=== PATIENT | male | born 1975 | race Caucasian/White ===

== ENCOUNTER → 2018-01-08 | Outpatient (CLI) | payer OTHER | LOC: M LRY 10:33 | DX: R09.89 Other specified symptoms and signs involving the circulatory and respiratory systems (principal) | CPT/HCPCS: 71046 ==

== ENCOUNTER 2019-02-17 21:05 | Emergency (ER) | payer OTHER ==
[~2019-02-17] VITALS: Ht 172.7 cm; Wt 72.7 kg
[2019-02-17 21:44] LABS: HEMATOCRIT 47.2 % (42.0-52.0); HEMOGLOBIN 16.4 g/dl (13.5-17.5); MEAN CORPUSCULAR HEMOGLOBIN 34.2 pg (27.0-33.0); MEAN CORPUSCULAR HGB CONC 34.7 g/dl (32.0-36.5); MEAN CORPUSCULAR VOLUME 98.3 fl (80.0-96.0); PLATELET COUNT, AUTOMATED 268 10^3/uL (150-450); WHITE BLOOD COUNT 11.3 10^3/uL (4.0-10.0)
[2019-02-17 22:09] LABS: ATYPICAL LYMPH 7 % (0-5); BASOPHILS 1 % (0-4); EOSINOPHILS 4 % (0-5); LYMPHOCYTES 26 % (16-52); MONOCYTES 7 % (0-8); NEUTROPHILS 55 % (35-75)
[2019-02-17 22:10] LABS: PLATELET ESTIMATE NORMAL (NORMAL)
[2019-02-17 22:13] LABS: BLOOD UREA NITROGEN 11 MG/DL (7-18); CALCIUM LEVEL 8.9 MG/DL (8.5-10.1); CARBON DIOXIDE LEVEL 26 MEQ/L (21-32); CHLORIDE LEVEL 107 MEQ/L (98-107); CK-MB VALUE MASS 2.9 NG/ML (<3.6); CPK CREATINE PHOSPHOKINASE 150 U/L (39-308); CREATININE FOR GFR 0.73 MG/DL (0.70-1.30); GLOMERULAR FILTRATION RATE > 60.0 (>60); GLUCOSE, FASTING 114 MG/DL (70-100); MB/CK RELATIVE INDEX 1.93 (< OR =4); POTASSIUM SERUM 3.8 MEQ/L (3.5-5.1); SODIUM LEVEL 140 MEQ/L (136-145); TROPONIN I < 0.02 NG/ML (< 0.10)
[2019-02-17] MEDS ORDERED: KETOROLAC 30 MG/ML VIAL (J1885) IV ONE (22:30)
[2019-02-17 22:45] VITALS: BP 126/72
[2019-02-17] MEDS ORDERED: IBUP-1022 PO (22:49)
--- NOTE | 2019-02-18 01:49 | REP ---
Clinical: Acute chest pain . Comparison: 01/08/2018 . Findings: The mediastinum and cardiac silhouette are stable and within normal limits for portable technique. The lung grant are clear without acute consolidation, effusion, or pneumothorax. Skeletal structures are intact. Impression: No acute cardiopulmonary process appreciated. Electronically Signed by Devaughn Lim MD 02/18/2019 01:41 A
--- NOTE | 2019-02-18 05:45 | ECGEPIP ---
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
== END 2019-02-17 22:58 | disposition home or self-care (01) ==
LOC: M ED 21:05
DX: R07.89 Other chest pain (principal); E11.9 Type 2 diabetes mellitus without complications; I10 Essential (primary) hypertension; F17.210 Nicotine dependence, cigarettes, uncomplicated
CPT/HCPCS: 71045; 80048; 82550; 82553; 85025; 93005; 93041; 94760; 96374; 99285; J1885